=== PATIENT | female | born 1970 | race African-American/Black ===

== ENCOUNTER 2019-04-14 22:57 | Inpatient (IN) | payer OTHER ==
[~2019-04-14] VITALS: Ht 162.6 cm; Wt 58.3 kg
[2019-04-14] MEDS ORDERED: CYCL10 PO (23:06)
[2019-04-14] MEDS ORDERED: IBUP-2071 PO (23:06)
[2019-04-14] MEDS ORDERED: GABA-531 PO (23:06)
[2019-04-14] MEDS ORDERED: SODIUM CHLORIDE 0.9% 1,000 ML IV ONE (23:15)
[2019-04-14 23:20] LABS: BASOPHILS % (AUTO) 0.6 % (0.0-2.0); EOSINOPHILS % (AUTO) 1.6 % (1.0-6.0); HEMATOCRIT 37.7 % (36-46); HEMOGLOBIN 12.2 g/dL (12.0-16.0); LYMPHOCYTES # (AUTO) 1.9 K/uL (1.0-4.8); LYMPHOCYTES % (AUTO) 40.5 % (22.0-44.0); MEAN CORPUSCULAR HEMOGLOBIN 28.1 pg (26.0-34.0); MEAN CORPUSCULAR HGB CONC 32.3 G/dL (31.0-37.0); MEAN CORPUSCULAR VOLUME 87 fL (80-100); MONOCYTES # (AUTO) 0.3 K/uL (0.1-1.0); MONOCYTES % (AUTO) 7.5 % (2.0-9.0); NEUTROPHILS # (AUTO) 2.3 K/uL (1.8-7.7); NEUTROPHILS % (AUTO) 49.8 % (40.0-70.0); PLATELET COUNT (AUTO) 299 K/uL (150-450); RED BLOOD CELL COUNT(AUTO) 4.33 MIL/uL (4.00-5.20)
[2019-04-14 23:30] LABS: ANION GAP 16 mmol/L (8-16); CALCIUM, TOTAL 8.9 mg/dL (8.8-10.5); CARBON DIOXIDE 22 mmol/L (22-29); CHLORIDE 106 mmol/L (98-107); CREATININE 0.87 mg/dL (0.60-1.30); GLOMERULAR FILTR. RATE CALC 57 mL/min (>60); GLUCOSE,RANDOM 87 mg/dL (70-110); SODIUM SERUM 144 mmol/L (136-145); UREA NITROGEN, BLOOD 23 mg/dL (7-18)
[2019-04-14 23:46] LABS: SALICYLATE 2.5 mg/dL (2.8-20.0)
[2019-04-14 23:56] LABS: ALANINE AMINOTRANSFERASE 34 U/L (12-78); ALBUMIN 4.6 g/dL (3.4-5.0); ALKALINE PHOSPHATASE 58 U/L (46-116); ASPARTATE AMINOTRANSFERASE 32 U/L (15-37); BILIRUBIN,TOTAL 0.3 mg/dL (0.1-1.0); CREATINE KINASE, TOTAL ONLY 148 U/L (26-192); HCG,QUANTITATIVE 5 mIU/mL (0-6)
[2019-04-15] MEDS ORDERED: POTASSIUM CHL 10 MEQ/WATER 50 ML IV ONE
[2019-04-15 00:02] LABS: AMPHET/METH SCREEN,URINE NEGATIVE (NEGATIVE); BARBITURATE SCREEN, URINE NEGATIVE (NEGATIVE); BENZODIAZEPINES SCREEN,URINE NEGATIVE (NEGATIVE); CANNABINOID SCREEN,URINE NEGATIVE (NEGATIVE); COCAINE SCREEN,URINE NEGATIVE (NEGATIVE); METHADONE SCREEN, URINE NEGATIVE (NEGATIVE); OPIATE SCREEN,URINE NEGATIVE (NEGATIVE); PHENCYCLIDINE SCREEN,URINE NEGATIVE (NEGATIVE)
[2019-04-15 00:07] LABS: ACETAMINOPHEN < 2 mcg/mL (10-30)
[2019-04-15] MEDS ORDERED: POTASSIUM CHL 10 MEQ/WATER 50 ML IV PRN ×4 (00:15)
[2019-04-15] MEDS ORDERED: ONDANSETRON HCL 4 MG/2 ML VIAL IVP PRN (00:15)
[2019-04-15] MEDS ORDERED: NALOXONE HCL 1 MG/ML 2 ML SYG IVP ONE (00:15)
[2019-04-15] MEDS ORDERED: POTASSIUM CHLORIDE 20 MEQ ER TABLET PO PRN (00:15)
[2019-04-15] MEDS ORDERED: 0.9% SODIUM CHLORIDE 10 ML SYRINGE IVP PRN (00:15)
[2019-04-15] MEDS: SODIUM CHLORIDE 0.9% 1,000 ML IV SCH ×2 (00:34→09:31)
[2019-04-15 04:39] LABS: ACETAMINOPHEN < 2 mcg/mL (10-30); ANION GAP 16 mmol/L (8-16); CALCIUM, TOTAL 7.5 mg/dL (8.8-10.5); CARBON DIOXIDE 17 mmol/L (22-29); CHLORIDE 111 mmol/L (98-107); GLOMERULAR FILTR. RATE CALC > 60 mL/min (>60); GLUCOSE,RANDOM 91 mg/dL (70-110); POTASSIUM 4.1 mmol/L (3.5-5.1); SODIUM SERUM 144 mmol/L (136-145); UREA NITROGEN, BLOOD 21 mg/dL (7-18)
[2019-04-15 04:41] LABS: SALICYLATE 1.6 mg/dL (2.8-20.0)
[2019-04-15 05:46] LABS: LACTIC ACID 2.3 mmol/L (0.4-2.0)
[2019-04-15] MEDS ORDERED: SODIUM CHLORIDE 0.9% 1,000 ML IV ONE ×2 (06:00→20:37)
[2019-04-15 08:27] VITALS: BP 102/68
[2019-04-15] MEDS ORDERED: FAMOTIDINE 10 MG/ML 2 ML VIAL IVP SCH (09:00)
[2019-04-15] MEDS ORDERED: LACTULOSE 200 GM/300 ML RECTAL SOLUTION PR SCH (12:15)
[2019-04-15 12:36] VITALS: BP 113/77
[2019-04-15 16:11] LABS: ABG A-A DIFF O2 58.8 mmHg (10-20.0); ABG BASE EXCESS -8.5 mmol/L (-2.0-3.0); ABG HCO3 18.5 mmol/L (22.0-26.0); ABG METHEMOGLOBIN 0.3 % (0.0-1.5); ABG OXYGEN CONTENT 14.5 mL/dL (15.0-23.0); ABG OXYGEN SATURATION 91.7 % (95.0-98.0); ABG OXYHEMOGLOBIN 90.5 % (94.0-100.0); ABG PCO2 27 mmHg (35-45); ABG PH 7.399 (7.35-7.450); ABG TOTAL HEMOGLOBIN 11.4 G/dL (12.0-18.0); PO2, ARTERIAL BG 58.6 mmHg (88.0-96.0); SOURCE, BLOOD GAS ARTERIAL; TEMPERATURE, FAHRENHEIT, BG 98.6 FAHREN (96.0-98.6)
[2019-04-15 16:12] LABS: O2 DEVICE,BLOOD GAS ROOM AIR (ROOM AIR); SITE, BLOOD GAS LFT RADIAL
[2019-04-15 16:19] VITALS: BP 142/96
[2019-04-15 16:41] LABS: APPEARANCE,URINE CLEAR (CLEAR); BILIRUBIN,URINE NEGATIVE (NEGATIVE); GLUCOSE, URINE (UA) NEGATIVE (NEGATIVE); KETONES,URINE NEGATIVE (NEGATIVE); LEUKOCYTE ESTERASE ,URINE NEGATIVE (NEGATIVE); NITRATE,URINE NEGATIVE (NEGATIVE); OCCULT BLOOD,URINE NEGATIVE (NEGATIVE); PH,URINE 5.5 (5.0-8.0); PROTEIN,URINE NEGATIVE (NEGATIVE); UROBILINOGEN,URINE 0.2 mg/dL (<=1.0)
[2019-04-15 20:03] VITALS: BP 156/62
[2019-04-15] MEDS: FAMOTIDINE 10 MG/ML 2 ML VIAL IVP SCH (21:43)
[2019-04-15 23:45] VITALS: BP 144/82
[2019-04-16 04:32] VITALS: BP 153/88
[2019-04-16] MEDS ORDERED: SODIUM CHLORIDE 0.9% 1,000 ML IV ONE (04:50)
[2019-04-16 06:02] LABS: BASOPHILS % (AUTO) 0.2 % (0.0-2.0); EOSINOPHILS % (AUTO) 0.3 % (1.0-6.0); HEMATOCRIT 32.4 % (36-46); HEMOGLOBIN 10.7 g/dL (12.0-16.0); LYMPHOCYTES # (AUTO) 0.9 K/uL (1.0-4.8); LYMPHOCYTES % (AUTO) 9.9 % (22.0-44.0); MEAN CORPUSCULAR HEMOGLOBIN 28.6 pg (26.0-34.0); MEAN CORPUSCULAR VOLUME 87 fL (80-100); MONOCYTES # (AUTO) 0.4 K/uL (0.1-1.0); MONOCYTES % (AUTO) 4.8 % (2.0-9.0); NEUTROPHILS # (AUTO) 7.6 K/uL (1.8-7.7); NEUTROPHILS % (AUTO) 84.8 % (40.0-70.0); PLATELET COUNT (AUTO) 234 K/uL (150-450); RED BLOOD CELL COUNT(AUTO) 3.74 MIL/uL (4.00-5.20); RED CELL DISTRIBUTION WIDTH 14.5 % (11.5-14.5)
[2019-04-16 06:20] LABS: LACTIC ACID 0.8 mmol/L (0.4-2.0)
[2019-04-16 06:25] LABS: ALANINE AMINOTRANSFERASE 20 U/L (12-78); ALBUMIN 3.2 g/dL (3.4-5.0); ALKALINE PHOSPHATASE 53 U/L (46-116); ANION GAP 9 mmol/L (8-16); ASPARTATE AMINOTRANSFERASE 16 U/L (15-37); BILIRUBIN,TOTAL 0.3 mg/dL (0.1-1.0); CARBON DIOXIDE 23 mmol/L (22-29); CHLORIDE 109 mmol/L (98-107); CREATININE 0.75 mg/dL (0.60-1.30); FREE T4 (FREE THYROXINE) 0.93 ng/dL (0.76-1.46); GLOMERULAR FILTR. RATE CALC > 60 mL/min (>60); GLUCOSE,RANDOM 81 mg/dL (70-110); POTASSIUM 3.6 mmol/L (3.5-5.1); SODIUM SERUM 141 mmol/L (136-145); THYROID STIMULATING HORMONE 3.86 uIU/mL (0.36-3.74); TOTAL PROTEIN, SERUM 6.5 g/dL (6.4-8.2); UREA NITROGEN, BLOOD 5 mg/dL (7-18)
[2019-04-16 08:00] VITALS: BP 140/99
[2019-04-16] MEDS: FAMOTIDINE 10 MG/ML 2 ML VIAL IVP SCH ×2 (09:04→20:13)
[2019-04-16 12:03] VITALS: BP 152/98
[2019-04-16 14:55] VITALS: BP 147/101
[2019-04-16] MEDS: BuPROPion HCL XL 150 MG ER TABLET PO SCH (15:00)
[2019-04-16] MEDS: TraMADol HCL 50 MG TABLET PO PRN (15:00)
[2019-04-16 16:10] VITALS: BP 142/103
[2019-04-16] MEDS: POTASSIUM CHLORIDE 20 MEQ ER TABLET PO PRN (18:21)
[2019-04-16 20:04] VITALS: BP 129/62
[2019-04-17 01:05] VITALS: BP 138/97
[2019-04-17] MEDS: TraMADol HCL 50 MG TABLET PO PRN ×3 (01:14→21:32)
[2019-04-17 05:28] VITALS: BP 136/89
[2019-04-17 06:29] LABS: BASOPHILS % (AUTO) 0.2 % (0.0-2.0); EOSINOPHILS % (AUTO) 0.5 % (1.0-6.0); HEMATOCRIT 30.1 % (36-46); HEMOGLOBIN 10.2 g/dL (12.0-16.0); LYMPHOCYTES # (AUTO) 1.1 K/uL (1.0-4.8); LYMPHOCYTES % (AUTO) 11.4 % (22.0-44.0); MEAN CORPUSCULAR HEMOGLOBIN 29.3 pg (26.0-34.0); MEAN CORPUSCULAR VOLUME 86 fL (80-100); MONOCYTES # (AUTO) 0.5 K/uL (0.1-1.0); MONOCYTES % (AUTO) 5.2 % (2.0-9.0); NEUTROPHILS % (AUTO) 82.7 % (40.0-70.0); PLATELET COUNT (AUTO) 239 K/uL (150-450); RED CELL DISTRIBUTION WIDTH 14.1 % (11.5-14.5)
[2019-04-17 06:39] LABS: ANION GAP 8 mmol/L (8-16); CALCIUM, TOTAL 8.3 mg/dL (8.8-10.5); CARBON DIOXIDE 25 mmol/L (22-29); CHLORIDE 104 mmol/L (98-107); CREATININE 0.77 mg/dL (0.60-1.30); GLOMERULAR FILTR. RATE CALC > 60 mL/min (>60); GLUCOSE,RANDOM 95 mg/dL (70-110); POTASSIUM 3.6 mmol/L (3.5-5.1); SODIUM SERUM 137 mmol/L (136-145); UREA NITROGEN, BLOOD 5 mg/dL (7-18)
[2019-04-17 08:00] VITALS: BP 139/100
[2019-04-17] MEDS ORDERED: SODIUM CHLORIDE 0.9% 1,000 ML IV ONE (09:51)
[2019-04-17] MEDS: BuPROPion HCL XL 150 MG ER TABLET PO SCH (11:34)
[2019-04-17] MEDS: FAMOTIDINE 10 MG/ML 2 ML VIAL IVP SCH ×2 (11:35→21:33)
[2019-04-17 12:49] VITALS: BP 142/95
[2019-04-17] MEDS ORDERED: BENZOCAINE/MENTHOL LOZENGE [6 LOZENGES/PACKET] PO PRN (13:30)
[2019-04-17] MEDS: LISINOPRIL 5 MG TABLET PO SCH (14:49)
[2019-04-17 15:42] VITALS: BP 146/98
[2019-04-17] MEDS: POTASSIUM CHLORIDE 20 MEQ ER TABLET PO PRN (18:35)
[2019-04-17 20:12] VITALS: BP 141/98
[2019-04-18 01:00] VITALS: BP 148/98
[2019-04-18] MEDS ORDERED: SODIUM CHLORIDE 0.9% 1,000 ML IV ONE (03:23)
[2019-04-18 05:52] VITALS: BP 145/99
[2019-04-18] MEDS: TraMADol HCL 50 MG TABLET PO PRN (06:09)
[2019-04-18 07:02] LABS: BASOPHILS % (AUTO) 0.2 % (0.0-2.0); EOSINOPHILS % (AUTO) 0.9 % (1.0-6.0); HEMATOCRIT 32.2 % (36-46); HEMOGLOBIN 10.8 g/dL (12.0-16.0); LYMPHOCYTES # (AUTO) 1.1 K/uL (1.0-4.8); LYMPHOCYTES % (AUTO) 14.4 % (22.0-44.0); MEAN CORPUSCULAR HEMOGLOBIN 28.7 pg (26.0-34.0); MEAN CORPUSCULAR HGB CONC 33.4 G/dL (31.0-37.0); MEAN CORPUSCULAR VOLUME 86 fL (80-100); MONOCYTES # (AUTO) 0.5 K/uL (0.1-1.0); MONOCYTES % (AUTO) 6.9 % (2.0-9.0); NEUTROPHILS % (AUTO) 77.6 % (40.0-70.0); PLATELET COUNT (AUTO) 293 K/uL (150-450); RED BLOOD CELL COUNT(AUTO) 3.75 MIL/uL (4.00-5.20); RED CELL DISTRIBUTION WIDTH 13.9 % (11.5-14.5)
[2019-04-18 07:12] LABS: ANION GAP 9 mmol/L (8-16); CALCIUM, TOTAL 9.2 mg/dL (8.8-10.5); CARBON DIOXIDE 27 mmol/L (22-29); CHLORIDE 102 mmol/L (98-107); CREATININE 0.81 mg/dL (0.60-1.30); GLOMERULAR FILTR. RATE CALC > 60 mL/min (>60); GLUCOSE,RANDOM 98 mg/dL (70-110); SODIUM SERUM 138 mmol/L (136-145); UREA NITROGEN, BLOOD 9 mg/dL (7-18)
[2019-04-18 08:08] VITALS: BP 151/101
[2019-04-18] MEDS: BuPROPion HCL XL 150 MG ER TABLET PO SCH (08:13)
[2019-04-18] MEDS: LISINOPRIL 5 MG TABLET PO SCH (08:14)
[2019-04-18] MEDS: FAMOTIDINE 10 MG/ML 2 ML VIAL IVP SCH (08:17)
[2019-04-18] MEDS ORDERED: LISI-622 PO (10:00)
[2019-04-18 11:42] VITALS: BP 157/90
[2019-04-18 16:11] VITALS: BP 146/99
[2019-04-18] MEDS ORDERED: LISI-660 PO (17:47)
[2019-04-18] MEDS ORDERED: BUPR-93 PO (17:47)
== END 2019-04-18 18:45 | disposition home or self-care (01) | DRG 817 ==
LOC: EDBD 22:59 → EMS 22:59 → 5S 04-15 05:30
PROVIDERS: ADMIT Internal Medicine; ATTEND Internal Medicine
DX: T42.6X2A Poisoning by other antiepileptic and sedative-hypnotic drugs, intentional self-harm, initial encounter (principal); G92 Toxic encephalopathy; T39.312A Poisoning by propionic acid derivatives, intentional self-harm, initial encounter; E86.0 Dehydration; R45.851 Suicidal ideations; F10.129 Alcohol abuse with intoxication, unspecified; E87.6 Hypokalemia; F32.9 Major depressive disorder, single episode, unspecified; I10 Essential (primary) hypertension; F12.90 Cannabis use, unspecified, uncomplicated; Y92.89 Other specified places as the place of occurrence of the external cause; Z79.899 Other long term (current) drug therapy
CPT/HCPCS: 36600; 51702; 70450; 74176; 82805; 83605; 84132; 84145; 84439; 84443; 93005; 99291; 99292; G0480; G0481; J2310; J3411; J3475; J3480; J3490; J7030

== ENCOUNTER 2021-08-26 12:25 | Emergency (ER) | payer OTHER ==
[~2021-08-26] VITALS: Ht 167.6 cm; Wt 55.5 kg
[~2021-08-26 12:25] MED LIST: BUPR-93 PO; LISI-892 PO
[2021-08-26] MEDS ORDERED: KETOROLAC TROMETHAMINE 30 MG/ML VIAL IM ONE (14:15)
[2021-08-26] MEDS ORDERED: CYCLOBENZAPRINE HCL 10 MG TABLET PO ONE (14:15)
[2021-08-26] MEDS ORDERED: LIDOCAINE 5% TRANSDERMAL PATCH TD ONE (14:15)
[2021-08-26] MEDS ORDERED: HYDR-4723 PO (15:22)
[2021-08-26] MEDS ORDERED: CYCL10TA17 PO (15:26)
[2021-08-26] MEDS ORDERED: IBUP-2070 PO (15:26)
[2021-08-26 15:30] VITALS: BP 130/80
== END 2021-08-26 15:31 | disposition home or self-care (01) ==
LOC: EMS 12:28
DX: M54.50 Low back pain, unspecified (principal); G89.29 Other chronic pain; Z79.899 Other long term (current) drug therapy
CPT/HCPCS: 96372; 99283; J1885

== ENCOUNTER 2024-10-20 00:27 | Emergency (ER) | payer OTHER ==
[~2024-10-20] VITALS: Ht 167.6 cm; Wt 70.5 kg
[~2024-10-20 00:27] MED LIST changes: +BUPR-50 PO; -BUPR-93 PO; +CYCL-448 PO; +IBUP-1492 PO
[2024-10-20 00:35] VITALS: BP 153/92; PULSE 97; RESP 18; TEMP 97.7; O2SAT 99
[2024-10-20] MEDS: ACETAMINOPHEN 500 MG TABLET PO ONE (01:00)
[2024-10-20] MEDS ORDERED: ACET-66 PO (01:03)
[2024-10-20] MEDS: SULFACETAMIDE SODIUM 10% 15 ML OPHTHALMIC SOLUTION OU ONE (01:03)
[2024-10-20] MEDS ORDERED: HYDR30CR39 TP (01:03)
== END 2024-10-20 01:21 | disposition home or self-care (01) ==
LOC: EMS 00:27
DX: H10.9 Unspecified conjunctivitis (principal); J06.9 Acute upper respiratory infection, unspecified; Z79.899 Other long term (current) drug therapy
CPT/HCPCS: 99283